=== PATIENT | female | born 1945 | race Caucasian/White ===

== ENCOUNTER 2016-12-15 00:45 | Inpatient (IN) | payer MEDICARE, OTHER ==
[2016-12-15] VITALS (14 sets, daily range): BP systolic 119–150; BP diastolic 63–86; PULSE 72–89; RESP 16–18; TEMP 96.8–98.7; O2SAT 94–99
[~2016-12-15] VITALS: Ht 167.6 cm; Wt 75.1 kg
[~2016-12-15 00:45] MED LIST: ASPI81CH7 CHEW; CITRTAB7 PO; CO Q100C9; CYAN1TAB24; CYMB60CA PO; FISH1000; GLUC1CAP16; HYDR25TA5 PO; LOSA25TA PO; METO25TA6 PO; MULT1TAB46; NAPR250T PO; PRAV20TA2 PO; TURM500C3
[2016-12-15] MEDS ORDERED: SODIUM CHLOR 0.9% 1000 ML INJ 1,000 ML IV SCH (01:18)
[2016-12-15] MEDS ORDERED: ONDANSETRON HCL 4 MG/2 ML VIAL IVP PRN (01:30)
[2016-12-15] MEDS ORDERED: ACETAMINOPHEN 325 MG TAB PO PRN ×2 (01:30→04:45)
[2016-12-15] MEDS ORDERED: SODIUM CHLOR 0.9% 250 ML INJ 250 ML IV ONE (01:30)
[2016-12-15] MEDS ORDERED: NALOXONE HCL 0.4 MG/ML AMP IV PRN (01:30)
[2016-12-15] MEDS ORDERED: SODIUM CHLORIDE 0.9% FLUSH 10 ML FLUSH IV FLUSH PRN (01:30)
[2016-12-15] MEDS: SODIUM CHLORIDE 0.9% FLUSH 10 ML FLUSH IV FLUSH SCH (09:00)
[2016-12-15] MEDS: HYDROCHLOROTHIAZIDE 25 MG TAB PO SCH (09:16)
[2016-12-15] MEDS: LOSARTAN 25 MG TAB PO SCH (09:16)
[2016-12-15] MEDS: DULoxetine HCl DR 60 MG CAP PO SCH (09:16)
[2016-12-15] MEDS: METOPROLOL SUCCINATE 25 MG EXTENDED RELEASE TAB PO SCH (09:16)
[2016-12-15] MEDS: PRAVASTATIN SOD 20 MG TAB PO SCH (09:17)
--- NOTE | 2016-12-15 09:39 | HHI.HP ---
[facility] Primary Care Physician Non-Staff Admission Diagnosis Diagnoses: (1) Severe anemia Diagnosis: Principal (2) Iron deficiency anemia Diagnosis: Principal (3) Painful swallowing Diagnosis: Principal Chief Complaint: Weakness, shortness of breath Travel History International Travel<30 Days: No Contact w/Intl Traveler <30 Da: No Traveled to Known Affected Are: No History of Present Illness Written by Luisito Kelly, acting as scribe for Dr. Lang on 12/15/16 at 09: 27. 71-year-old female with known history of hypertension, fibromyalgia, irritable bowel syndrome, gastroesophageal reflux, parathyroidectomy who presented to the emergency department because of few week history of progressive weakness, shortness of breath, dyspnea on exertion, sore throat. Patient indicates for the last few weeks she has been feeling increased fatigue , weakness, dyspnea. She indicates that she cannot walk up a flight of steps without stopping because of shortness of breath.. 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 Patient indicates that she had a sore throat yesterday with pain on swallowing, her sore throat has since resolved. Because of those above reasons she came to emergency department for evaluation. Patient had workup done in found to have severe anemia, iron studies were performed which does show severe iron deficient anemia. Hemoccult was performed which was negative. Patient denies any abdominal pain, nausea, vomiting, hematochezia or hematemesis, she does have irritable bowel syndrome so she does have intermittent constipation, soft stools. She denies any hematochezia or melena. Because of her severe anemia it was recommended by ER physician that the patient be admitted for further workup and transfusion. Review of Systems Constitutional: COMPLAINS OF: Fatigue, DENIES: Diaphoretic episodes, Fever, Weight gain, Weight loss, Chills, Dizziness, Change in appetite, Night Sweats Eyes: DENIES: Blurred vision, Diplopia, Eye inflammation, Eye pain, Vision loss , Photosensitivity, Double Vision Ears, nose, mouth, throat: COMPLAINS OF: Throat pain, Odynophagia, DENIES: Vertigo, Nasal discharge, Ear Pain, Running Nose, Sinus Pain Respiratory: COMPLAINS OF: Shortness of breath, DENIES: Apneas, Cough, Snoring , Wheezing, Hemoptysis, Sputum production Cardiovascular: COMPLAINS OF: Palpitations, Dyspnea on Exertion, DENIES: Chest pain, Syncope, PND, Lower Extremity Edema, Orthopnea, Claudication Gastrointestinal: COMPLAINS OF: Constipation, Diarrhea, DENIES: Abdominal pain , Black stools, Bloody stools, Nausea, Vomiting, Difficulty Swallowing, Anorexia Neurologic: DENIES: Abnormal gait, Headache, Localized weakness, Paresthesias, Seizures, Speech Problems, Tremor, Poor Balance Past Family Social History Past Medical History Hypertension Hyperlipidemia Fibromyalgia Gastroesophageal reflux Past Surgical History Parathyroidectomy Hysterectomy Right ankle surgery Reported Medications Reported Meds & Active Scripts Active Naproxen 250 Mg Tab 250 Mg PO BID Reported Turmeric (Turmeric (Curcuma Longa)) 500 Mg Cap Citracal + D3 Maximum (Calcium Citrate-Vitamin D) 315-250 Mg-Unit Tab 1 Tab PO ONCE B12 (Cyanocobalamin) 1,000 Mcg Tab Glucosamine Chondroitin (Gedhpzzwnbk-Wtbbtciksuf-Gbv C-) 1 Cap Cap Unknown Dose Fish Oil (Vera-3 Fatty Acids) 1,000 Mg Cap 1,400 Mg Aspirin Children's (Aspirin) 81 Mg Chew 81 Mg CHEW DAILY Multi Vitamin Daily (Multiple Vitamin) 1 Tab Tab Co Q 10 (Coenzyme Q10 (Ubidecarenone)) [address] (Duloxetine HCl) 60 Mg Capdr 60 Mg PO DAILY Pravastatin 20 Mg Tab 20 Mg PO DAILY Hydrochlorothiazide 25 Mg Tab 25 Mg PO DAILY Losartan (Losartan Potassium) 25 Mg Tab 25 Mg PO DAILY Metoprolol Succinate ER 24 HR (Metoprolol Succinate) 25 Mg Tab 25 Mg PO DAILY Allergies: Coded Allergies: No Known Allergies (Unverified , 12/14/16) Family History Reviewed is significant for mother and sister with hiatal hernia. Patient denied any family history of heart disease, lung disease, diabetes, cancer, seizure Social History Patient denies any tobacco, alcohol or illicit drugs Physical Exam Vital Signs Vital Signs Date Time Temp Pulse Resp B/P Pulse Ox O2 Delivery O2 Flow Rate FiO2 12/15/16 09:22 98.6 77 16 150/86 98 12/15/16 08:52 98 21 12/15/16 08:00 96.8 77 16 119/68 95 12/15/16 08:00 96.8 77 18 119/66 97 12/15/16 07:23 97.9 85 18 126/69 95 12/15/16 06:46 97.2 82 16 119/63 95 12/15/16 04:37 98.0 89 16 144/69 96 12/15/16 04:01 79 12/15/16 02:20 96 21 12/15/16 01:09 97.6 86 18 147/85 97 Physical Exam GENERAL: Well-developed, well-nourished, in no acute distress. alert and orientated HEENT: Head is normocephalic without any lesions or masses noted. Facial features are symmetric. Eyes: Pupils equal round reactive to light. Extraocular muscles are intact. Conjunctivae were clear. Oropharyngeal: Pharynx without any erythema edema. Tongue is midline without deviation. Buccal mucosa is moist without any masses or lesions NECK: Supple without any masses. Trachea midline no deviation. No JVD, no bruits are appreciated CARDIAC: Regular rhythm, regular rate. S1/S2 are heard. No murmurs gallops or rubs. LUNGS: Clear to auscultation bilaterally. No wheeze, rhonchi or rales. No use of accessory muscles on inspiration or expiration. ABDOMEN: Soft, nontender. Nondistended. Bowel sounds heard in all 4 quadrants. No organomegaly or masses. Negative rebound, negative guarding EXTREMITIES: No edema, pulses are equal bilaterally. No cyanosis or clubbing NEUROLOGY: Mood and affect appear appropriate. Cranial nerves II through XII grossly intact. Muscle strength 5/5 in upper and lower extremities bilaterally. Deep tendon reflexes are 2+ in upper and lower extremities bilaterally. Laboratory Laboratory Tests Test 12/15/16 12/15/16 01:35 02:25 Blood Type B POSITIVE B POSITIVE Antibody Screen NEGATIVE Crossmatch Leukocyte-Reduced Red Blood Cells Blood Bank Comment Assessment and Plan Assessment and Plan //Severe symptomatic anemia -Patient presented with shortness of breath, dyspnea on exertion, palpitations, fatigue, weakness -Iron studies to indicate iron deficient anemia -Transfusing 2 units packed red blood cells this time, -Continue monitor and transfuse if hemoglobin below 8.0 -Patient will require iron replacement: Depending on further studies will depend on IV versus by mouth //Sore throat, resolved -No indication of infectious process or dysphagia -Continue to monitor //Hypertension -Continue home medications //Hyperlipidemia -Continue home medications //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 I, Dr. Caio Lang personally performed the history, physical exam, and medical decision making; and confirmed the accuracy of the information in the transcribed note. Authenticated by Dr. Caio Lang on 12/15/16 at 18:34. Physician Certification 2 Midnight Certification Type: Admission for Inpatient Services Order for Inpatient Services The services are ordered in accordance with Medicare regulations or non- Medicare payer requirements, as applicable. In the case of services not specified as inpatient-only, they are appropriately provided as inpatient services in accordance with the 2-midnight benchmark. Estimated LOS (days): 2 days is the estimated time the patient will need to remain in the hospital, assuming treatment plan goals are met and no additional complications. Post-Hospital Plan: Not yet determined Luisito Kelly Dec 15, 2016 09:39 Caio Lang MD Dec 15, 2016 18:35
[2016-12-15] MEDS: CALCIUM CARBONATE 1.25 GM (CA 500 MG) TAB PO SCH (10:00)
[2016-12-15 10:40] LABS: POTASSIUM 3.3 MEQ/L (3.5-5.1)
[2016-12-15 10:41] LABS: AUTOMATED NEUTROPHIL # 5.9 TH/MM3 (1.8-7.7); BASOPHIL % 0.5 % (0.0-2.0); EOSINOPHIL # 0.2 TH/MM3 (0-0.4); EOSINOPHIL % 2.2 % (0.0-4.0); HEMATOCRIT 23.5 % (35.0-46.0); HEMO FLAGS AUTO DIFF; LYMPH % 19.3 % (9.0-44.0); LYMPHOCYTE # 1.6 TH/MM3 (1.0-4.8); MEAN CELL VOLUME 65.9 FL (80.0-100.0); MEAN CORPUSCULAR HEMOGLOBIN 20.5 PG (27.0-34.0); MEAN CORPUSCULAR HGB CONC 31.1 % (32.0-36.0); MONO % 6.2 % (0.0-8.0); NEUT % 71.8 % (16.0-70.0); PLATELET COUNT 479 TH/MM3 (150-450); RED BLOOD COUNT 3.57 MIL/MM3 (4.00-5.30); RED CELL DISTRIBUTION WIDTH 24.3 % (11.6-17.2); WHITE BLOOD COUNT 8.2 TH/MM3 (4.0-11.0)
[2016-12-15 10:42] LABS: BICARBONATE 28.1 MEQ/L (21.0-32.0)
[2016-12-15 10:58] LABS: ACANTHOCYTES OCC (NORMAL); KERATOCYTES OCC (NORMAL); OVALOCYTES 1+ (NORMAL); ROULEAUX PRESENT (NORMAL)
[2016-12-15 10:59] LABS: PLATELET ESTIMATE SMEAR HIGH (NORMAL); PLATELET MORPHOLOGY NORMAL (NORMAL); SCAN/DIFF AUTO DIFF CONFIRMED
[2016-12-15 11:40] LABS: LDH SERUM 198 U/L (84-246)
[2016-12-15 12:24] LABS: RETIC % 1.8 % (0.4-3.0)
[2016-12-15 12:28] LABS: REVIEW FLAG FINAL
[2016-12-15] MEDS ORDERED: PEG (High)/E-LYTE SOLN 4000 ML BTL PO ONE (16:00)
--- NOTE | 2016-12-15 17:16 | MB ---
cc: MONI EWING M.D. DATE OF CONSULTATION 12/15/2016 DATE OF [address] Waddell. REASON FOR REFERRAL Dysphagia and significant anemia. HISTORY OF THE PRESENT ILLNESS Thank you for the consultation. A pleasant 71-year-old lady who presented to the [place] [facility] complaining of generalized weakness, fatigue. The patient stated that this has been getting worse steadily and that is why she went to the emergency room over the last month and she was found to be severely anemic. The patient was not able to even go up stairs for one flight without having dyspnea on exertion and general weakness. The patient denied any sign of active bleeding. No dark blood. No hematemesis. No rectal bleeding. She had a colonoscopy and endoscopy 8 years ago. The patient also complained of occasional dysphagia, mostly to solids. She had occasional irritable bowel syndrome with loose stool but no bleeding or history of colitis. PAST MEDICAL HISTORY Significant for: 1. Hyperlipidemia. 2. Fibromyalgia. 3. Gastroesophageal reflux symptoms. 4. Hypertension. PAST SURGICAL HISTORY 1. Hysterectomy 2. Ankle surgery. 3. Parathyroidectomy which was complicated with bleeding. REVIEW OF SYSTEMS All 12-point negative except HPI. MEDICATIONS Reviewed in the chart. FAMILY HISTORY Negative for heart disease or colon cancer. Patient had a family member with lung cancer secondary to smoking. SOCIAL HISTORY No tobacco, drug or alcohol. PHYSICAL EXAMINATION GENERAL: Alert, oriented, in no acute distress. VITAL SIGNS: Stable. HEENT: Pupils are round and reactive to light. NECK: Supple. CHEST: Clear to auscultation and percussion. CARDIOVASCULAR: Regular rate and rhythm. No murmur or gallop. ABDOMEN: Soft, nondistended. Positive bowel sounds. No hepatosplenomegaly. EXTREMITIES: No edema, clubbing or cyanosis. NEUROLOGIC: Intact. PSYCHOLOGIC: Psychologically appropriate. LABORATORY DATA White count 8.2, hemoglobin 7.3, platelets 479. Sodium was 145, potassium 3.3. Vitamin B12 was 1116. Folate was greater than 20. ASSESSMENT/PLAN Garcia, 71-year-old lady with shortness of breath, dyspnea came complaining that she was found to be severely anemic. No sign of active bleed. She also has dysphagia. I recommend an upper endoscopy with possible dilation and a colonoscopy. We discussed the procedures and complication. She most likely want to proceed with it but she wants to discuss it with her before she agreed to it. The patient also may need hematology consult if there is no sign of active bleeding since she does not have symptom of GI bleed, so I recommend hematology consult. She is already receiving packed red blood cells and we will follow up on the hemoglobin. I explained to the patient the procedure and complication and we will plan on doing it tomorrow if she is agreeable for that. MD YASIR Ryan/KK /2:42 PM /5:07 PM
[2016-12-15 18:21] LABS: HEMATOCRIT 26.5 % (35.0-46.0)
[2016-12-15 18:23] LABS: REVIEW FLAG FINAL
[2016-12-16] VITALS (10 sets, daily range): BP systolic 116–147; BP diastolic 70–84; PULSE 68–83; RESP 16–19; TEMP 97.1–98.5; O2SAT 94–97
[2016-12-16] MEDS: SODIUM CHLORIDE 0.9% FLUSH 10 ML FLUSH IV FLUSH SCH ×3 (00:46→20:46)
[2016-12-16 06:55] LABS: AUTOMATED NEUTROPHIL # 8.8 TH/MM3 (1.8-7.7); BASOPHIL % 0.3 % (0.0-2.0); EOSINOPHIL # 0.2 TH/MM3 (0-0.4); EOSINOPHIL % 1.9 % (0.0-4.0); HEMATOCRIT 25.7 % (35.0-46.0); LYMPH % 16.2 % (9.0-44.0); LYMPHOCYTE # 1.9 TH/MM3 (1.0-4.8); MEAN CELL VOLUME 68.1 FL (80.0-100.0); MEAN CORPUSCULAR HEMOGLOBIN 21.5 PG (27.0-34.0); MEAN CORPUSCULAR HGB CONC 31.6 % (32.0-36.0); MONO % 5.6 % (0.0-8.0); PLATELET COUNT 413 TH/MM3 (150-450); RED BLOOD COUNT 3.78 MIL/MM3 (4.00-5.30); RED CELL DISTRIBUTION WIDTH 24.3 % (11.6-17.2); WHITE BLOOD COUNT 11.5 TH/MM3 (4.0-11.0)
[2016-12-16 06:58] LABS: HEMO FLAGS AUTO DIFF
[2016-12-16 06:59] LABS: POTASSIUM 3.5 MEQ/L (3.5-5.1)
[2016-12-16 07:04] LABS: BICARBONATE 29.7 MEQ/L (21.0-32.0)
[2016-12-16 07:40] LABS: SCAN/DIFF AUTO DIFF CONFIRMED
[2016-12-16] MEDS: PRAVASTATIN SOD 20 MG TAB PO SCH (09:00)
[2016-12-16] MEDS: DULoxetine HCl DR 60 MG CAP PO SCH (09:00)
[2016-12-16] MEDS: CALCIUM CARBONATE 1.25 GM (CA 500 MG) TAB PO SCH (09:00)
--- NOTE | 2016-12-16 09:19 | GIPROC ---
[facility] [address] [place] [address], [id number] COLONOSCOPY PROCEDURE REPORT EXAM DATE: 12/16/2016 PATIENT NAME: Luba Linn MR #: [id number] BIRTHDATE: 1945 ENDOSCOPIST: Kristopher Bernal MD ORDER #: [id number] DIRECTOR TRANSLATIONAL: Haley Mcfadden and Alonso Chand STATUS: inpatient INDICATIONS: The patient is a 71 yr old female here for a colonoscopy due to anemia, non-specific PROCEDURE PERFORMED: Colonoscopy with ablation MEDICATIONS: None and Per Anesthesia. PREP QUALITY: fair ESTIMATED BLOOD LOSS: None CONSENT: The patient understands the risks and benefits of the procedure and understands that these risks include, but are not limited to: sedation, allergic reaction, infection, perforation and/or bleeding. Alternative means of evaluation and treatment include, among others: physical exam, x-rays, and/or surgical intervention. The patient elects to proceed with this endoscopic procedure. medical equipment was checked for proper function. Hand hygiene and appropriate measures for infection prevention was taken. After the risks, benefits and alternatives of the procedure were thoroughly explained, Informed consent was verified, confirmed and timeout was successfully executed by the treatment team. A digital exam revealed no abnormalities of the rectum The Pentax EC-3490Li endoscope was introduced through the anus and advanced to the cecum, which was identified by both the appendix and ileocecal valve. The instrument was then slowly withdrawn as the colon was fully examined. COLON FINDINGS: Severe diverticulosis was noted throughout the entire examined colon. 2 polyps in the sigmoid ablated with heat. Very tortous colon. Retroflexed views revealed no abnormalities The scope was then completely withdrawn from the patient and the procedure terminated. ADVERSE EVENTS: There were no complications. IMPRESSIONS: 1. Severe diverticulosis was noted throughout the entire examined colon 2. 2 polyps in the sigmoid ablated with heat 3. Very tortous colon 4. Retroflexed views revealed no abnormalities 5. Revealed no abnormalities of the rectum RECOMMENDATIONS: 1. Yearly hemoccult 2. High fiber diet RECALL: Return 3 years Colonoscopy Kristopher Bernal MD eSigned: Kristopher Bernal MD 2016-12-16 09:19:[id number] cc:
--- NOTE | 2016-12-16 09:22 | GIPROC ---
[facility] [address] [place] [address], [id number] EGD PROCEDURE REPORT EXAM DATE: 12/16/2016 PATIENT NAME: Luba Linn MR #: [id number] BIRTHDATE: 1945 ATTENDING: Kristopher Bernal MD ORDER #: [id number] CURB ATTENDANT: Haley Mcfadden and Alonso Chand STATUS: inpatient INDICATIONS: The patient is a 71 yr old female here for an EGD due to anemia and dysphagia PROCEDURE PERFORMED: EGD w/ biopsy EGD w/ dilation of esophagus via guidewire MEDICATIONS: None and Per Anesthesia. TOPICAL ANESTHETIC: none CONSENT: The patient understands the risks and benefits of the procedure and understands that these risks include, but are not limited to: sedation, allergic reaction, infection, perforation and/or bleeding. Alternative means of evaluation and treatment include, among others: physical exam, x-rays, and/or surgical intervention. The patient elects to proceed with this endoscopic procedure. medical equipment was checked for proper function. Hand hygiene and appropriate measures for infection prevention was taken. After the risks, benefits and alternatives of the procedure were thoroughly explained, Informed consent was verified, confirmed and timeout was successfully executed by the treatment team. The patient was anesthetized with topical anesthesia and the EC-3490Li (Pedi C) endoscope was introduced through the mouth and advanced to the second portion of the duodenum. Retroflexed views revealed no abnormalities The gastroscope was then slowly withdrawn and removed. Esophageal stricture s/p dilation savary size 17 mm. Large H hernia. Gastritis Bx in antrum. The endoscopy was otherwise normal. ADVERSE EVENTS: There were no complications. IMPRESSIONS: 1. Esophageal stricture s/p dilation savary size 17 mm 2. Large H hernia 3. Gastritis Bx in antrum 4. Normal endoscopy otherwise 5. Retroflexed views revealed no abnormalities RECOMMENDATIONS: 1. Await biopsy results. Biopsy results will not be ready for 7-10 days. If you don't hear from us in two weeks, call our office for biopsy results. 2. Anti-reflux regimen 3. Continue PPI 4. Avoid NSAIDS PATIENT CONDITION: stable DISPOSITION: Inpatient REPEAT EXAM: Return as needed for EGD Kristopher Bernal MD eSigned: Kristopher Bernal MD 2016-12-16 09:22:36.073 cc:
[2016-12-16] MEDS ORDERED: PROPOFOL 200 MG/20 ML AMP IV ONE (09:34)
[2016-12-16] MEDS: LOSARTAN 25 MG TAB PO SCH (10:52)
[2016-12-16] MEDS: HYDROCHLOROTHIAZIDE 25 MG TAB PO SCH (10:52)
[2016-12-16] MEDS: METOPROLOL SUCCINATE 25 MG EXTENDED RELEASE TAB PO SCH (10:53)
--- NOTE | 2016-12-16 11:17 | EKG ---
Date Performed: 12/16/2016 Time Performed: 06:29:56 PTAGE: 71 years EKG: Sinus rhythm Normal ECG NO PREVIOUS TRACING DOCTOR: Connor Ge Interpretating Date/Time 12/16/2016 11:14:49
[2016-12-16] MEDS ORDERED: OMEP20TA PO (12:28)
[2016-12-16] MEDS: PANTOPRAZOLE SOD 40 MG DELAYED RELEASE TAB PO SCH ×2 (12:51→20:45)
--- NOTE | 2016-12-16 14:20 | HHI.PR ---
Subjective Remarks Follow up anemia. Patient states that she feels much better. Denies abdominal pain, lightheadedness. Objective Vitals Vital Signs Date Time Temp Pulse Resp B/P Pulse Ox O2 Delivery O2 Flow Rate FiO2 12/16/16 12:00 98.5 77 19 147/80 95 12/16/16 09:53 98.0 79 16 117/73 100 12/16/16 09:25 97.8 78 16 110/47 94 12/16/16 07:20 98.1 78 16 131/79 96 12/16/16 04:17 97.1 76 16 128/71 97 12/16/16 00:58 97.9 83 18 135/84 96 12/15/16 20:00 97.3 78 16 150/83 95 12/15/16 19:35 95 21 12/15/16 16:00 97.7 81 18 142/72 95 I/O 12/15/16 12/15/16 12/15/16 12/16/16 12/16/16 12/16/16 06:59 14:59 22:59 06:59 14:59 22:59 Intake Total 200 ml 550 ml 100 ml Balance 200 ml 550 ml 100 ml Intake Oral 550 ml IV Total 200 ml Other 100 ml # Voids 3 2 # Bowel Movements 3 Result Diagram: 12/16/1662212/16/16 06 Objective Remarks General: No acute distress. Heart: Regular rate and rhythm. No murmur. Lungs: Clear to auscultation bilaterally. No wheezes, rales, or rhonchi. Breathing is nonlabored. Abdomen: Soft, nontender, nondistended. Extremities: No lower extremity edema. Psych: Alert and oriented. Procedures 12/16/16 EGD with biopsy Urinary Catheter: No Vascular Central Line Catheter: No A/P Problem List: (1) Severe anemia ICD Code: D64.9 Status: Acute (2) Iron deficiency anemia ICD Code: D50.9 Status: Acute (3) Painful swallowing ICD Code: R13.10 Status: Acute Assessment and Plan 1. Symptomatic anemia: Hemoglobin remained stable overnight. Still low, but improved following transfusion. Monitor H&H. Status post EGD which showed gastritis with no apparent active bleeding. Discussed with Dr. Bernal, who recommended hematology consult. Start iron supplementation. Continue PPI. 2. Sore throat: Resolved. 3. Hypertension: Continue home medications. 4. Hyperlipidemia: Continue home medications. 5. 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 6. DVT prophylaxis: SCDs. Avoid chemical prophylaxis secondary to anemia. Discharge Planning Plan for discharge home when cleared by hematology. Luisito Don MD Dec 16, 2016 14:20
[2016-12-16 15:46] LABS: HEMATOCRIT 26.3 % (35.0-46.0)
[2016-12-16 15:48] LABS: REVIEW FLAG FINAL
--- NOTE | 2016-12-16 18:37 | HHI.GIFU ---
Subjective Remarks feels well, no sign of bleed, less weakness, no pain Objective Vitals I&O Vital Signs Date Time Temp Pulse Resp B/P Pulse Ox O2 Delivery O2 Flow Rate FiO2 12/16/16 16:00 97.8 68 18 138/77 95 12/16/16 12:00 98.5 77 19 147/80 95 12/16/16 10:52 77 12/16/16 09:53 98.0 79 16 117/73 100 12/16/16 09:25 97.8 78 16 110/47 94 12/16/16 08:00 97 21 12/16/16 07:20 98.1 78 16 131/79 96 12/16/16 04:17 97.1 76 16 128/71 97 12/16/16 00:58 97.9 83 18 135/84 96 12/15/16 20:00 97.3 78 16 150/83 95 12/15/16 19:35 95 21 I/O 12/15/16 12/15/16 12/15/16 12/16/16 12/16/16 12/16/16 07:00 15:00 23:00 07:00 15:00 23:00 Intake Total 200 ml 550 ml 102 ml Balance 200 ml 550 ml 102 ml Intake Oral 550 ml IV Total 200 ml 2 ml Other 100 ml # Voids 3 2 # Bowel Movements 3 Laboratory Laboratory Tests Test 12/16/16 12/16/16 12/16/16 12/16/16 00:40 06:23 06:25 15:22 Hemoglobin 8.0 8.1 8.4 White Blood Count 11.5 Red Blood Count 3.78 Hematocrit 25.7 26.3 Mean Corpuscular Volume 68.1 Mean Corpuscular Hemoglobin 21.5 Mean Corpuscular Hemoglobin 31.6 Concent Red Cell Distribution Width 24.3 Platelet Count 413 Mean Platelet Volume 6.9 Neutrophils (%) (Auto) 76.0 Lymphocytes (%) (Auto) 16.2 Monocytes (%) (Auto) 5.6 Eosinophils (%) (Auto) 1.9 Basophils (%) (Auto) 0.3 Neutrophils # (Auto) 8.8 Lymphocytes # (Auto) 1.9 Monocytes # (Auto) 0.6 Eosinophils # (Auto) 0.2 Basophils # (Auto) 0.0 CBC Comment AUTO DIFF Differential Comment AUTO DIFF CONFIRMED Sodium Level 141 Potassium Level 3.5 Chloride Level 104 Carbon Dioxide Level 29.7 Anion Gap 7 Blood Urea Nitrogen 12 Creatinine 0.61 Estimat Glomerular Filtration 97 Rate Random Glucose 102 Calcium Level 8.4 Physical Exam HEENT: Pupils round and reactive to light; normocephalic; atraumatic; no jaundice. Throat is clear. NECK: Neck is supple, no JVD, no lymphadenopathy. CHEST: Chest is clear to auscultation and percussion. CARDIAC: Regular rate and rhythm with no murmur gallop or rubs. ABDOMEN: Soft, nondistended, nontender; no hepatosplenomegaly; bowel sounds are present in all four quadrants. EXTREMITIES: No clubbing, cyanosis, or edema. SKIN: Normal; no rash; no jaundice. RECORDS MANAGEMENT SPECIALIST: No focal deficits; alert and oriented times three. Assessment and Plan Plan sever anemia, weakness, ? etiology, EGD today showed esophageal stricture S/P dilation, mid size hiatal hernia with some gastritis in it, colon showed 2 small polyps ablated and sever diverticulosis, no reason for the sever anemia unless it is from the gastritis recommend PRBC as needed hematology consult continue PPI colonoscopy in 3 years Kristopher Bernal MD Dec 16, 2016 18:37
[2016-12-16] MEDS: SODIUM CHLORIDE 0.9% IV SCH (18:45)
[2016-12-16] MEDS: IRON SUCROSE IV SCH (18:45)
[2016-12-16] MEDS: FERROUS SULFATE 325 MG (65 MG ELEMENTAL IRON) TAB PO SCH (20:45)
[2016-12-16] MEDS ORDERED: PRAVASTATIN SOD 20 MG TAB PO SCH (21:00)
[2016-12-17] VITALS (7 sets, daily range): BP systolic 122–134; BP diastolic 60–71; PULSE 62–77; RESP 16–20; TEMP 97.1–98.7; O2SAT 92–97
[2016-12-17 06:18] LABS: AUTOMATED NEUTROPHIL # 8.5 TH/MM3 (1.8-7.7); BASOPHIL % 0.3 % (0.0-2.0); EOSINOPHIL # 0.2 TH/MM3 (0-0.4); HEMATOCRIT 24.9 % (35.0-46.0); LYMPH % 15.1 % (9.0-44.0); LYMPHOCYTE # 1.7 TH/MM3 (1.0-4.8); MEAN CELL VOLUME 68.1 FL (80.0-100.0); MEAN CORPUSCULAR HEMOGLOBIN 21.1 PG (27.0-34.0); MEAN CORPUSCULAR HGB CONC 31.1 % (32.0-36.0); MONO % 5.9 % (0.0-8.0); NEUT % 76.7 % (16.0-70.0); PLATELET COUNT 383 TH/MM3 (150-450); RED BLOOD COUNT 3.66 MIL/MM3 (4.00-5.30); RED CELL DISTRIBUTION WIDTH 25.2 % (11.6-17.2); WHITE BLOOD COUNT 11.1 TH/MM3 (4.0-11.0)
[2016-12-17 06:31] LABS: HEMO FLAGS AUTO DIFF
--- NOTE | 2016-12-17 06:46 | MB ---
cc: BRENT LEE M.D., ANDREW C. DATE OF CONSULTATION 03/18/2017 DATE OF 1945 CONSULT REQUESTED BY [facility] Hospitalist Service PRIMARY CARE PHYSICIAN Dr. Ziyad Zapien REASON FOR CONSULTATION Severe microcytic anemia secondary to iron deficiency. CHIEF COMPLAINT The patient reports a four-week history of progressive weakness in her legs, difficulty breathing with exertion. HISTORY OF PRESENT ILLNESS Ms. Linn is a very pleasant 71-year-old female who presented to [facility] on 12/15/2016 complaining of the above symptoms of progressive difficulty breathing with minimal exertion and generalized fatigue. She also reports feeling lightheaded. The patient, on blood work was noted to have a hemoglobin of 5.8 gm/dl associate with hematocrit of 20%, her platelet count was elevated 525 as well at that time. She was transferred to [facility] for further workup and evaluation. The patient reports having been anemic in her younger years when she was still having menstrual cycles, but she underwent a hysterectomy in 1987 for endometriosis and heavy menstrual bleeding. She tells me she had not been anemic ever since. She does however note blood work done in August 2016 indicated a hemoglobin of 10 gm/dl, but this did not strike her as abnormal because it was not mentioned during her office visit with her primary care physician. The patient reports no history of bleeding, she specifically denies hematochezia or melena, she denies vaginal bleeding or hematuria. She tells me that she does take aspirin 81 mg daily and she takes about two Advil tablets sometime three daily, but never more than three tablets (600 mg per day). She denies having had any gastritis or upper abdominal pain. During this hospitalization, she did undergo a colonoscopy which was performed on 12/16/2016, she was noted to have severe diverticulosis throughout the entire colon, as well as two polyps in the sigmoid area which were ablated. Additionally, EGD was done on 12/16/2016 as well. This revealed a large hiatal hernia, esophageal stricture which was dilated, gastritis was also noted with biopsies of the antrum (biopsies results are pending). The hematology service has been asked to see her for further management of severe microcytic anemia as well as outpatient followup. PAST MEDICAL HISTORY 1. Arthritis 2. Hypertension 3. Endometriosis 4. Reported history of fibromyalgia. PAST SURGICAL HISTORY 1. Hysterectomy 1987. 2. In 2015, she underwent parathyroidectomy. FAMILY HISTORY Father of a massive OR at 61, mother had iron deficiency anemia, she is now , sister also had iron deficiency anemia. GYNECOLOGIC HISTORY 0, para 0. 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 She tells me she has never smoked, she has an occasional alcohol drinker. She has five adopted children all of whom are grown. ALLERGIES She has no known drug allergies. OUTPATIENT MEDICATIONS 1. Aspirin 81 mg once daily 2. Ibuprofen 400 mg daily CURRENT INPATIENT MEDICATIONS 1. Tylenol 650 mg p.o. q.4 h as needed for fever 2. Calcium carbonate 500 mg p.o. daily 3. Cymbalta of 60 mg daily 4. HCTZ 25 mg p.o. daily 5. Losartan 25 mg p.o. daily 6. Metoprolol 25 mg daily 7. Zofran 4 mg IV q.6 h next 8. Pantoprazole 40 mg p.o. b.i.d. 9. Pravastatin 20 mg p.o. q.h.s. REVIEW OF SYSTEMS A 13-point review of systems were obtained. The following are the pertinent positives and negatives unless mentioned otherwise in the HPI. CONSTITUTIONAL: Fatigue, weakness, breathlessness, denies fevers, chills, night sweats, loss of appetite, or weight loss. HEENT: Reports lightheadedness, denies soreness in the throat, difficulty swallowing. RESPIRATORY: Reports difficulty breathing, exertional dyspnea, denies cough, hemoptysis or angina-like chest pain. CARDIOVASCULAR: Reports palpitations, denies chest pain or pressure, denies lower extremity edema. GI: Denies nausea, vomiting, diarrhea hematochezia, melena, abdominal pain or distension. : No complaints. MUSCULOSKELETAL: No complaints other than weakness of her legs. TICKET MANAGER: No focal sensory motor deficits. PHYSICAL EXAMINATION VITAL SIGNS: Temperature 97.8 degrees Fahrenheit, heart rate 68 beats a minute, respiratory rate 18, blood pressure 138/77, O2 sats 95% on room air. GENERAL PHYSICAL APPEARANCE: Ms. Linn is an elderly female, she has a very pleasant disposition. HEENT: Head atraumatic, normocephalic, conjunctive are pale sclerae anicteric, EOMI, PERRLA, oral exam no pharyngeal erythema. NECK: No palpable cervical or supraclavicular adenopathy. She does have a suprasternal surgical scar noted. RESPIRATORY: Good air movement bilaterally without any added breath sounds on posterior exam. CARDIOVASCULAR: Regular rate and rhythm, S1-S2. No obvious murmurs, gallops. ABDOMEN: Protuberant belly, soft, nontender, nondistended, no palpable organ enlargement, specifically no hepatosplenomegaly. EXTREMITIES: Lower extremities have no pretibial edema or calf tenderness. TICKET MANAGER: No focal sensory motor deficits. LABORATORY FINDINGS Blood work dated 12/16/2016: Sodium 141, potassium 3.5, chloride 104, bicarb 29.7, BUN 12, creatinine 0.61, EGFR 97, calcium 8.4. Serum iron studies dated 12/14/2016: Iron level 10, TIBC 571, percent iron saturation 1.8%, ferritin level 2. Total bilirubin 0.2, AST 21, ALT 30, alkaline phosphatase 71, albumin 3.5. Folic acid level 20, vitamin B12 level elevated at 116. CBC dated 12/14/2016: WBC count 11.3, hemoglobin 5.8 gm/dl, hematocrit 20%, MCV 62.7, RDW of 17.6. MCH low at 18.2, platelet count elevated at 525. Spherocytes, ovalocytes and karyocytes were all noted. Haptoglobin level noted to be normal at 179, ASSESSMENT Ms. Linn is a very pleasant 71-year-old female who came into [facility] with a three to four week history of progressive difficulty breathing with exertion, lightheadedness and weakness in her legs. She was noted to have a hemoglobin of 5.8 gm/dl upon admission, a hemolysis workup was negative, serum iron studies were consistent with iron deficiency anemia as were the red blood cell indices. Stool for occult blood was negative. She denies any history of apparent or obvious blood loss, specifically, hematochezia or melena, hematuria or hemoptysis. She did undergo a GI workup including EGD and colonoscopy and was noted to have gastritis; biopsies were taken, a distal esophageal stricture was also noted and this was dilated. Colonoscopy revealed diverticulitis throughout the colon and two polyps in the sigmoid colon which were ablated. The hematology service has been asked to see her for further workup and management. RECOMMENDATIONS 1. Severe iron deficiency anemia: I would recommend IV iron replacement therapy with iron sucrose at a dose of 500 mg IV daily x2. I would also recommend folic acid for her even though her folic acid levels are normal. When ready for d/c please send her home with oral ferrous sulfate 325 mg po BID. 2. Additional GI workup if needed per the gastroenterology service. 3. Follow up with hematology in the upcoming weeks for surveillance and monitoring for improvement. Additionally she may require an outpatient infusions of iron replacement therapy as well. MD SHIVAM Moody/CAMILLA /6:38 PM /6:34 AM FLOR
[2016-12-17 07:16] LABS: KERATOCYTES OCC (NORMAL); OVALOCYTES 1+ (NORMAL); ROULEAUX PRESENT (NORMAL); SCAN/DIFF AUTO DIFF CONFIRMED
[2016-12-17] MEDS: DULoxetine HCl DR 60 MG CAP PO SCH (09:00)
[2016-12-17] MEDS ORDERED: FOLIC ACID 1 MG TAB PO SCH (09:00)
[2016-12-17] MEDS: CALCIUM CARBONATE 1.25 GM (CA 500 MG) TAB PO SCH (09:00)
[2016-12-17] MEDS: LOSARTAN 25 MG TAB PO SCH (09:29)
[2016-12-17] MEDS: HYDROCHLOROTHIAZIDE 25 MG TAB PO SCH (09:30)
[2016-12-17] MEDS: METOPROLOL SUCCINATE 25 MG EXTENDED RELEASE TAB PO SCH (09:30)
[2016-12-17] MEDS: FERROUS SULFATE 325 MG (65 MG ELEMENTAL IRON) TAB PO SCH (09:30)
[2016-12-17] MEDS: PANTOPRAZOLE SOD 40 MG DELAYED RELEASE TAB PO SCH (09:30)
[2016-12-17] MEDS: SODIUM CHLORIDE 0.9% FLUSH 10 ML FLUSH IV FLUSH SCH (09:31)
[2016-12-17] MEDS: IRON SUCROSE IV SCH (09:31)
[2016-12-17] MEDS: SODIUM CHLORIDE 0.9% IV SCH (09:31)
--- NOTE | 2016-12-17 11:34 | HHI.PR ---
Subjective Remarks Follow up iron deficiency anemia. Patient states that she feels better today and wants to go home. No pain currently. Has had pain with swallowing, but "not a sore throat". This started prior to the hospitalization. Objective Vitals Vital Signs Date Time Temp Pulse Resp B/P Pulse Ox O2 Delivery O2 Flow Rate FiO2 12/17/16 07:40 97.5 67 20 127/60 92 12/17/16 04:00 97.1 69 16 123/66 95 12/17/16 00:00 98.7 77 16 122/71 93 12/16/16 20:25 72 12/16/16 20:00 97.6 77 18 116/70 94 12/16/16 19:55 94 21 12/16/16 16:00 97.8 68 18 138/77 95 12/16/16 12:00 98.5 77 19 147/80 95 I/O 12/16/16 12/16/16 12/16/16 12/17/16 12/17/16 12/17/16 07:00 15:00 23:00 07:00 15:00 23:00 Intake Total 102 ml 0 ml 600 ml Balance 102 ml 0 ml 600 ml Intake Oral 600 ml IV Total 2 ml 0 ml Other 100 ml # Voids 2 # Bowel Movements 0 Result Diagram: 12/17/16 0545 12/16/16 0625 Objective Remarks General: No acute distress. Heart: Regular rate and rhythm. No murmur. Lungs: Clear to auscultation bilaterally. No wheezes, rales, or rhonchi. Breathing is nonlabored. Abdomen: Soft, nontender, nondistended. Extremities: No lower extremity edema. Psych: Alert and oriented. Procedures 12/16/16 EGD with biopsy Urinary Catheter: No Vascular Central Line Catheter: No A/P Problem List: (1) Severe anemia ICD Code: D64.9 Status: Acute (2) Iron deficiency anemia ICD Code: D50.9 Status: Acute (3) Painful swallowing ICD Code: R13.10 Status: Acute Assessment and Plan 1. Symptomatic anemia: Hemoglobin slightly decreased overnight. Received transfusion of 2 units PRBCs during this hospitalization. Status post EGD which showed gastritis with no apparent active bleeding. Appreciate hematology recommendations. Receiving second dose of IV iron now. 2. Sore throat: Resolved. 3. Hypertension: Continue home medications. 4. Hyperlipidemia: Continue home medications. 5. 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 6. DVT prophylaxis: SCDs. Avoid chemical prophylaxis secondary to anemia. Discharge Planning Possible discharge home later today pending repeat H/H and clearance by hematology. Luisito Don MD Dec 17, 2016 11:34
[2016-12-17 15:21] LABS: HEMATOCRIT 29.8 % (35.0-46.0)
[2016-12-17 15:25] LABS: REVIEW FLAG FINAL
[2016-12-17] MEDS ORDERED: FERR325T20 PO (15:50)
[2016-12-17] MEDS ORDERED: PANT40TA3 PO (15:50)
[2016-12-17] MEDS ORDERED: FOLI1TAB6 PO (15:50)
--- NOTE | 2016-12-17 15:51 | HHI.DCPOC ---
Discharge Care Plan Diagnosis: (1) Severe anemia (2) Iron deficiency anemia (3) Painful swallowing (4) Hypertension Goals to Promote Your Health * To prevent worsening of your condition and complications * To maintain your health at the optimal level Directions to Meet Your Goals Take your medications as prescribed Follow your dietary instruction Follow activity as directed Keep your appointments as scheduled Take your immunizations and boosters as scheduled If your symptoms worsen call your PCP, if no PCP go to Urgent Care Center or Emergency Room Smoking is Dangerous to Your Health. Avoid second hand smoke Call the 24-hour hour crisis hotline for domestic abuse at Luisito Don MD Dec 17, 2016 15:51
--- NOTE | 2016-12-17 15:55 | HHI.DS ---
Discharge Summary Admission Date Dec 15, 2016 at 00:49 Discharge Date: Dec 17, 2016 Admitting Diagnosis Symptomatic anemia (1) Severe anemia ICD Code: D64.9 Diagnosis: Principal (2) Iron deficiency anemia ICD Code: D50.9 Diagnosis: Principal (3) Painful swallowing ICD Code: R13.10 Diagnosis: Principal Procedures 12/16/16 EGD with biopsy Brief History - From Admission Written by Luisito Kelly, acting as scribe for Dr. Lang on 12/15/16 at 09: 27. 71-year-old female with known history of hypertension, fibromyalgia, irritable bowel syndrome, gastroesophageal reflux, parathyroidectomy who presented to the emergency department because of few week history of progressive weakness, shortness of breath, dyspnea on exertion, sore throat. Patient indicates for the last few weeks she has been feeling increased fatigue , weakness, dyspnea. She indicates that she cannot walk up a flight of steps without stopping because of shortness of breath.. She indicates that she had blood work done by her medical lab director a month ago and was never notified that there was any abnormality. Patient indicates that she had a sore throat yesterday with pain on swallowing, her sore throat has since resolved. Because of those above reasons she came to emergency department for evaluation. Patient had workup done in found to have severe anemia, iron studies were performed which does show severe iron deficient anemia. Hemoccult was performed which was negative. Patient denies any abdominal pain, nausea, vomiting, hematochezia or hematemesis, she does have irritable bowel syndrome so she does have intermittent constipation, soft stools. She denies any hematochezia or melena. Because of her severe anemia it was recommended by ER physician that the patient be admitted for further workup and transfusion. CBC/BMP: 12/17/16 1513 12/16/16 0625 Significant Findings Laboratory Tests Test 12/15/16 12/15/16 12/16/16 12/16/16 10:30 18:15 00:40 06:23 Red Blood Count 3.57 MIL/MM3 3.78 MIL/MM3 (4.00-5.30) (4.00-5.30) Hemoglobin 7.3 GM/DL 8.4 GM/DL 8.0 GM/DL 8.1 GM/DL (11.6-15.3) (11.6-15.3) (11.6-15.3) (11.6-15.3) Hematocrit 23.5 % 26.5 % 25.7 % (35.0-46.0) (35.0-46.0) (35.0-46.0) Mean Corpuscular Volume 65.9 FL 68.1 FL (80.0-100.0) (80.0-100.0) Mean Corpuscular Hemoglobin 20.5 PG 21.5 PG (27.0-34.0) (27.0-34.0) Mean Corpuscular Hemoglobin 31.1 % 31.6 % Concent (32.0-36.0) (32.0-36.0) Red Cell Distribution Width 24.3 % 24.3 % (11.6-17.2) (11.6-17.2) Platelet Count 479 TH/MM3 (150-450) Mean Platelet Volume 6.7 FL 6.9 FL (7.0-11.0) (7.0-11.0) Neutrophils (%) (Auto) 71.8 % 76.0 % (16.0-70.0) (16.0-70.0) Platelet Estimate HIGH (NORMAL) Ovalocytes 1+ (NORMAL) Acanthocytes OCC (NORMAL) Rouleau PRESENT (NORMAL) Keratocytes OCC (NORMAL) Potassium Level 3.3 MEQ/L (3.5-5.1) Chloride Level 108 MEQ/L (98-107) Estimat Glomerular Filtration 70 ML/MIN (>89) Rate Random Glucose 108 MG/DL (74-106) Calcium Level 8.3 MG/DL (8.5-10.1) Vitamin B12 Level 1116 PG/ML (193-986) Folate GREATER THAN 20.0 NG/ML (3.1-17.5) White Blood Count 11.5 TH/MM3 (4.0-11.0) Neutrophils # (Auto) 8.8 TH/MM3 (1.8-7.7) Test 12/16/16 12/16/16 12/17/16 12/17/16 06:25 15:22 05:45 15:13 Calcium Level 8.4 MG/DL (8.5-10.1) Hemoglobin 8.4 GM/DL 7.7 GM/DL 9.1 GM/DL (11.6-15.3) (11.6-15.3) (11.6-15.3) Hematocrit 26.3 % 24.9 % 29.8 % (35.0-46.0) (35.0-46.0) (35.0-46.0) White Blood Count 11.1 TH/MM3 (4.0-11.0) Red Blood Count 3.66 MIL/MM3 (4.00-5.30) Mean Corpuscular Volume 68.1 FL (80.0-100.0) Mean Corpuscular Hemoglobin 21.1 PG (27.0-34.0) Mean Corpuscular Hemoglobin 31.1 % Concent (32.0-36.0) Red Cell Distribution Width 25.2 % (11.6-17.2) Mean Platelet Volume 6.9 FL (7.0-11.0) Neutrophils (%) (Auto) 76.7 % (16.0-70.0) Neutrophils # (Auto) 8.5 TH/MM3 (1.8-7.7) Ovalocytes 1+ (NORMAL) Rouleau PRESENT (NORMAL) Keratocytes OCC (NORMAL) PE at Discharge General: No acute distress. Heart: Regular rate and rhythm. No murmur. Lungs: Clear to auscultation bilaterally. No wheezes, rales, or rhonchi. Breathing is nonlabored. Abdomen: Soft, nontender, nondistended. Extremities: No lower extremity edema. Psych: Alert and oriented. Hospital Course The patient was admitted for further evaluation and management of severe symptomatic anemia. She was given transfusion of 2 units PRBCs. Hemoglobin remained low. Further labs showed significant iron deficiency. Gastroenterology was consulted for evaluation of possible GI bleed. EGD showed gastritis, but no active bleeding. Hematology was consulted and recommended IV iron, which was administered. The patient's hemoglobin did improve and she was felt to be stable for discharge home. Pt Condition on Discharge: Stable Discharge Disposition: Discharge Home Discharge Time: > 30 minutes Discharge Instructions DIET: Follow Instructions for: Heart Healthy Diet Speech Therapy-Diet Recommends: Regular Activities you can perform: Regular-No Restrictions Follow up Referrals: Gastroenterology - 2 Weeks with Kristopher Bernal MD Oncology - 1 Week with Kunal Causey MD PCP Follow-up - 1 Week New Medications: Ferrous Sulfate (Ferosul) 325 Mg Tablet 325 MG PO BID Anemia #60 Ref 0 TAB Folic Acid (Folic Acid) 1 Mg Tablet 1 MG PO DAILY Nutritional Supplement #30 Ref 0 TAB Pantoprazole (Pantoprazole) 40 Mg Tab 40 MG PO Q12HR GERD #60 Ref 0 TAB Continued Medications: Aspirin (Aspirin Children's) 81 Mg Chew 81 MG CHEW DAILY Ref 0 TAB Calcium Citrate-Vitamin D (Citracal + D3 Maximum) 315-250 Mg-Unit Tab 1 TAB PO ONCE Calcium Supplement #100 Ref 0 TAB Coenzyme Q10 (Ubidecarenone) (Co Q 10) 100 Mg Cap Cyanocobalamin (B12) 1,000 Mcg Tab Zffsoejucom-Xwglbfgzaxn-Pgd C- (Glucosamine Chondroitin) 1 Cap Cap Unknown Dose Hydrochlorothiazide (Hydrochlorothiazide) 25 Mg Tab 25 MG PO DAILY #30 Ref 0 TAB Losartan (Losartan) 25 Mg Tab 25 MG PO DAILY Blood Pressure Management #30 Ref 0 TAB Metoprolol Succinate ER 24 HR (Metoprolol Succinate ER 24 HR) 25 Mg Tab 25 MG PO DAILY #30 Ref 0 TAB Multiple Vitamin (Multi Vitamin Daily) 1 Tab Tab Naproxen (Naproxen) 250 Mg Tab 250 MG PO BID #14 Ref 0 TAB Banner-3 Fatty Acids (Fish Oil) 1,000 Mg Cap 1400 MG Pravastatin (Pravastatin) 20 Mg Tab 20 MG PO DAILY Cholesterol Management #30 Ref 0 TAB Turmeric (Curcuma Longa) (Turmeric) 500 Mg Cap Discontinued Medications: Omeprazole (Omeprazole) 20 Mg Tab 20 MG PO DAILY #30 Ref 0 TAB Luisito Don MD Dec 17, 2016 15:54
== END 2016-12-17 17:10 | disposition home or self-care (01) | DRG 812 ==
LOC: NEDDLT 00:45 → PH3A 00:49
PROVIDERS: ADMIT Family Medicine; ATTEND Family Medicine
PROC: 30233N1 Transfusion of Nonautologous Red Blood Cells into Peripheral Vein, Percutaneous Approach (ICD-10-PCS; principal; 2016-12-15)
PROC: 0D758ZZ Dilation of Esophagus, Via Natural or Artificial Opening Endoscopic (ICD-10-PCS; 2016-12-16)
PROC: 0D5N8ZZ Destruction of Sigmoid Colon, Via Natural or Artificial Opening Endoscopic (ICD-10-PCS; 2016-12-16)
PROC: 0DB68ZX Excision of Stomach, Via Natural or Artificial Opening Endoscopic, Diagnostic (ICD-10-PCS; 2016-12-16 08:00)
DX: D50.9 Iron deficiency anemia, unspecified (principal); K22.2 Esophageal obstruction; I10 Essential (primary) hypertension; K29.70 Gastritis, unspecified, without bleeding; K44.9 Diaphragmatic hernia without obstruction or gangrene; K57.30 Diverticulosis of large intestine without perforation or abscess without bleeding; D12.5 Benign neoplasm of sigmoid colon; M79.7 Fibromyalgia; K58.9 Irritable bowel syndrome, unspecified; K21.9 Gastro-esophageal reflux disease without esophagitis; E78.5 Hyperlipidemia, unspecified; J02.9 Acute pharyngitis, unspecified; E89.2 Postprocedural hypoparathyroidism; Z79.82 Long term (current) use of aspirin
CPT/HCPCS: 36430; 71020; 80048; 80053; 82272; 82607; 82728; 82746; 83010; 83540; 83550; 83615; 85014; 85018; 85025; 85044; 86850; 86900; 86901; 86920; 88305; 88312; 93005; 96360; C1769; J1756; J2405; J7030; J7050; P9016

== ENCOUNTER 2017-07-03 22:50 | Observation (INO) | payer MEDICARE, OTHER ==
[~2017-07-03 22:50] MED LIST changes: -CYMB60CA PO; +FERR325T20 PO; +FOLI1TAB6 PO; +METO1TAB42 PO; -METO25TA6 PO; -NAPR250T PO; +NAPR250T4 PO; +PANT40TA3 PO
[2017-07-03] MEDS ORDERED: POTASSIUM CHLORIDE INJ 20 MEQ in SODIUM CHLOR 0.9% 1000 ML INJ 1,000 ML IV SCH (23:51)
[2017-07-04] MEDS ORDERED: SODIUM CHLORIDE 0.9% FLUSH 10 ML FLUSH IV FLUSH PRN
[2017-07-04] MEDS ORDERED: ONDANSETRON HCL 4 MG/2 ML VIAL IVP PRN
[2017-07-04] MEDS ORDERED: NALOXONE HCL 0.4 MG/ML AMP IV PUSH PRN
[2017-07-04 01:05] LABS: AUTOMATED NEUTROPHIL # 9.4 TH/MM3 (1.8-7.7); BASOPHIL # 0.3 TH/MM3 (0-0.2); EOSINOPHIL # 0.1 TH/MM3 (0-0.4); EOSINOPHIL % 0.6 % (0.0-4.0); HEMATOCRIT 45.2 % (35.0-46.0); HEMOGLOBIN 14.9 GM/DL (11.6-15.3); LYMPH % 16.9 % (9.0-44.0); LYMPHOCYTE # 2.1 TH/MM3 (1.0-4.8); MEAN CELL VOLUME 87.5 FL (80.0-100.0); MEAN CORPUSCULAR HEMOGLOBIN 28.9 PG (27.0-34.0); MEAN CORPUSCULAR HGB CONC 33.1 % (32.0-36.0); MEAN PLATELET VOLUME 8.5 FL (7.0-11.0); MONOCYTE # 0.8 TH/MM3 (0-0.9); NEUT % 74.5 % (16.0-70.0); PLATELET COUNT 244 TH/MM3 (150-450); RED BLOOD COUNT 5.17 MIL/MM3 (4.00-5.30); RED CELL DISTRIBUTION WIDTH 13.2 % (11.6-17.2); WHITE BLOOD COUNT 12.6 TH/MM3 (4.0-11.0)
[2017-07-04 01:27] LABS: BICARBONATE 27.8 MEQ/L (21.0-32.0); CALCIUM 8.9 MG/DL (8.5-10.1); CREATININE 0.92 MG/DL (0.50-1.00)
[2017-07-04] MEDS: PIPERACIL-TAZO 3.375 GM PREMIX 50 ML IV SCH ×2 (01:31→06:12)
[2017-07-04] MEDS ORDERED: POTASSIUM BICARBONATE 25 MEQ EFFERVESCENT TAB PO ONE ×2 (01:45→11:00)
[2017-07-04] MEDS: POTASSIUM CHLOR 10 MEQ PREMIX 100 ML IV SCH ×4 (02:05→05:06)
[2017-07-04] MEDS: NS + KCL 20 MEQ INJ 1,000 ML IV SCH ×2 (02:05→13:35)
[2017-07-04 04:00] VITALS: BP 132/71; PULSE 78; RESP 17; TEMP 98.5; O2SAT 96
[2017-07-04 06:33] LABS: HEMATOCRIT 41.2 % (35.0-46.0); HEMOGLOBIN 13.7 GM/DL (11.6-15.3)
[2017-07-04 08:00] VITALS: BP 131/65; PULSE 68; RESP 18; TEMP 98; O2SAT 96
[2017-07-04] MEDS: SODIUM CHLORIDE 0.9% FLUSH 10 ML FLUSH IV FLUSH SCH ×2 (09:00→21:01)
--- NOTE | 2017-07-04 09:08 | HHI.HP ---
[facility] Alexey Larson MD Admission Diagnosis Diagnoses: (1) GI bleed Diagnosis: Principal (2) Hypertension Diagnosis: Secondary (3) Hypokalemia Diagnosis: Secondary Chief Complaint: Abdominal pain Nausea, vomiting, diarrhea Travel History International Travel<30 Days: No Contact w/Intl Traveler <30 Da: No Traveled to Known Affected Are: No History of Present Illness Written by Netta Chu, acting as scribe for Dr. Young on 07/04/17 at 09:04. Mrs. Linn is a 72-year-old female patient with a known medical history of hypertension, hyperlipidemia who presented to the ED with complaints of diarrhea and blood present her stool. On morning around 0230 she awoke and had a bout of diarrhea which continued throughout the afternoon, which at that time she recognized the blood in her stool. Denies any recent fever or chills. Admits to intermittent abdominal cramping. Last BM reported around 0130 this morning. Patient does state that her and dog have also been having diarrhea and relates her present diarrhea to possibly something her and her ate and was also given to the dog. Reports of last colonoscopy was in December. Admits to a recent GI bleed due to use of excessive NSAIDs. Denies any recent NSAID use. Review of Systems Constitutional: DENIES: Fever, Chills Eyes: DENIES: Blurred vision Respiratory: DENIES: Cough, Hemoptysis, Shortness of breath Cardiovascular: DENIES: Chest pain, Palpitations Gastrointestinal: COMPLAINS OF: Abdominal pain, Bloody stools, DENIES: Diarrhea , Nausea, Vomiting Neurologic: DENIES: Abnormal gait Psychiatric: DENIES: Anxiety Except as stated in HPI: all other systems reviewed are Neg Past Family Social History Past Medical History Hypertension Hyperlipidemia Fibromyalgia Gastroesophageal reflux Past Surgical History Parathyroidectomy Hysterectomy Right ankle surgery Reported Medications Active Pantoprazole (Pantoprazole Sodium) 40 Mg Tab 40 Mg PO Q12HR Folic Acid 1 Mg Tablet 1 Mg PO DAILY Reported Citracal + D3 Maximum (Calcium Citrate-Vitamin D) 315-250 Mg-Unit Tab 1 Tab PO ONCE B12 (Cyanocobalamin) 1,000 Mcg Tab Aspirin Children's (Aspirin) 81 Mg Chew 81 Mg CHEW DAILY Multi Vitamin Daily (Multiple Vitamin) 1 Tab Tab Pravastatin 20 Mg Tab 20 Mg PO DAILY Hydrochlorothiazide 25 Mg Tab 25 Mg PO DAILY Losartan (Losartan Potassium) 25 Mg Tab 25 Mg PO DAILY Metoprolol Succinate ER 24 HR (Metoprolol Succinate) 25 Mg Tab 25 Mg PO DAILY Allergies: Coded Allergies: No Known Allergies (Unverified Allergy, Unknown, 07/04/17) Active Ordered Medications Current Medications Medications (Trade) Dose Ordered Sig/Vel Route Start Time Stop Time Status Last Admin (NS Flush) 2 ml UNSCH PRN IV FLUSH 07/04/17 00:00 (NS Flush) 2 ml BID IV FLUSH 07/04/17 09:00 (Zofran Inj) 4 mg Q6H PRN IVP 07/04/17 00:00 (Narcan Inj) 0.4 mg UNSCH PRN IV PUSH 07/04/17 00:00 Piperacillin Sod/ Tazobactam Sod 50 ml @ 100 mls/hr Q6HR IV 07/04/17 00:15 07/04/17 06:12 Potassium Chloride/Sodium Chloride 1,000 ml @ 75 mls/hr [id number] IV 07/04/17 00:15 07/04/17 02:05 (Hydrodiuril) 25 mg DAILY PO 07/04/17 09:00 (Cozaar) 25 mg DAILY PO 07/04/17 09:00 (Toprol Xl) 25 mg DAILY PO 07/04/17 09:00 (Protonix) 40 mg Q12HR PO 07/04/17 09:00 (Pravachol) 20 mg DAILY PO 07/04/17 09:00 Family History Reviewed is significant for mother and sister with hiatal hernia. Denies any family history of colon cancer. Patient denied any family history of heart disease, lung disease, diabetes, cancer, seizure. Social History Patient denies any tobacco, alcohol or illicit drugs Physical Exam Vital Signs Vital Signs Date Time Temp Pulse Resp B/P (MAP) Pulse Ox O2 Delivery O2 Flow Rate FiO2 07/04/17 08:00 98.0 68 18 131/65 (87) 96 07/04/17 04:00 98.5 78 17 132/71 (91) 96 Physical Exam GENERAL: This is a well-nourished, well-developed female patient, lying in bed in no apparent distress. SKIN: No rashes, ecchymoses or lesions. Warm and dry. HEAD: Atraumatic. Normocephalic. EYES: Pupils equal round and reactive. Extraocular motions intact. No scleral icterus. No injection or drainage. ENT: Nose without bleeding, purulent drainage or septal hematoma. Throat without erythema, tonsillar hypertrophy or exudate. Uvula midline. Airway patent. NECK: Trachea midline. No JVD. Supple. CARDIOVASCULAR: Regular rate and rhythm without murmurs, gallops, or rubs. RESPIRATORY: Clear to auscultation. Breath sounds equal bilaterally. No wheezes , rales, or rhonchi. GASTROINTESTINAL: Abdomen soft, nondistended. No guarding. MUSCULOSKELETAL: Extremities without clubbing, cyanosis, or edema. NEUROLOGICAL: Awake and alert. Cranial nerves II through XII intact. Motor and sensory grossly within normal limits. Five out of 5 muscle strength in all muscle groups. Normal speech. Laboratory Laboratory Tests Test 07/04/17 00:50 07/04/17 06:13 White Blood Count 12.6 Red Blood Count 5.17 Hemoglobin 14.9 13.7 Hematocrit 45.2 41.2 Mean Corpuscular Volume 87.5 Mean Corpuscular Hemoglobin 28.9 Mean Corpuscular Hemoglobin Concent 33.1 Red Cell Distribution Width 13.2 Platelet Count 244 Mean Platelet Volume 8.5 Neutrophils (%) (Auto) 74.5 Lymphocytes (%) (Auto) 16.9 Monocytes (%) (Auto) 6.0 Eosinophils (%) (Auto) 0.6 Basophils (%) (Auto) 2.0 Neutrophils # (Auto) 9.4 Lymphocytes # (Auto) 2.1 Monocytes # (Auto) 0.8 Eosinophils # (Auto) 0.1 Basophils # (Auto) 0.3 CBC Comment AUTO DIFF Differential Comment AUTO DIFF CONFIRMED Platelet Estimate NORMAL Platelet Morphology Comment NORMAL Red Cell Morphology Comment NORMAL Blood Urea Nitrogen 20 Creatinine 0.92 Random Glucose 115 Calcium Level 8.9 Sodium Level 141 Potassium Level 2.9 Chloride Level 106 Carbon Dioxide Level 27.8 Anion Gap 7 Estimat Glomerular Filtration Rate 60 Result Diagram: 07/04/17 0613 07/04/17 0050 Septic Shock Reassessment Septic shock perfusion: reassessment completed Caprini VTE Risk Assessment Caprini VTE Risk Assessment: Mod/High Risk (score >= 2) Caprini Risk Assessment Model Point Value = 1 Point Value = 2 Point Value = 3 Point Value = 5 Age 41-60 Minor surgery BMI > 25 kg/m2 Swollen legs Varicose veins or History of unexplained or recurrent spontaneous Oral contraceptives or hormone replacement Sepsis (< 1 month) Serious lung disease, including pneumonia (< 1 month) Abnormal pulmonary function Acute myocardial infarction Congestive heart failure (< 1 month) History of inflammatory bowel disease Medical patient at bed rest Age 61-74 Arthroscopic surgery Major open surgery (> 45 min) Laparoscopic surgery (> 45 min) Malignancy Confined to bed (> 72 hours) Immobilizing plaster cast Central venous access Age >= 75 History of VTE Family history of VTE Factor V Leiden Prothrombin [id number] Lupus anticoagulant Anticardiolipin antibodies Elevated serum homocysteine Heparin-induced thrombocytopenia Other congenital or acquired thrombophilia Stroke (< 1 month) Elective arthroplasty Hip, pelvis, or leg fracture Acute spinal cord injury (< 1 month) Prophylaxis Regimen Total Risk Factor Score Risk Level Prophylaxis Regimen 0-1 Low Early ambulation 2 Moderate Order ONE of the following: *Sequential Compression Device (SCD) *Heparin 5000 units SQ BID 3-4 Higher Order ONE of the following medications: *Heparin 5000 units SQ TID *Enoxaparin/Lovenox 40 mg SQ daily (WT < 150 kg, CrCl > 30 mL/min) *Enoxaparin/Lovenox 30 mg SQ daily (WT < 150 kg, CrCl > 10-29 mL/min) *Enoxaparin/Lovenox 30 mg SQ BID (WT < 150 kg, CrCl > 30 mL/min) AND/OR *Sequential Compression Device (SCD) 5 or more Highest Order ONE of the following medications: *Heparin 5000 units SQ TID (Preferred with Epidurals) *Enoxaparin/Lovenox 40 mg SQ daily (WT < 150 kg, CrCl > 30 mL/min) *Enoxaparin/Lovenox 30 mg SQ daily (WT < 150 kg, CrCl > 10-29 mL/min) *Enoxaparin/Lovenox 30 mg SQ BID (WT < 150 kg, CrCl > 30 mL/min) AND *Sequential Compression Device (SCD) Assessment and Plan Problem List: (1) GI bleed ICD Code: K92.2 - Gastrointestinal hemorrhage, unspecified (2) Hypokalemia ICD Code: E87.6 - Hypokalemia (3) Hypertension ICD Code: I10 - Essential (primary) hypertension Status: Acute Assessment and Plan Mrs. Linn is a 72-year-old female patient with a known medical history of hypertension, hyperlipidemia who presented to the ED with complaints of diarrhea and bloody stools. Gastrointestinal bleed with one day history of bloody stools History of GI bleed in the past secondary to NSAID use Abdominal/Pelvis CT reviewed showing diffuse mural thickening of the colon especially transverse and left colon characteristic of a colitis. No obstruction , free fluid or free air. GI has been consulted and has seen patient with recommendations for additional colonoscopy, last one in December 2016. At this time patient is refusing colonoscopy and requesting to go home. Hemiglobin 14.9/Hematocrit 45.2. Hemoccult positive. Stable with last BM last evening. Continue to trend H&H GI placed on Cipro and Flagyl. Will DC Zosyn. WBC 12.6. Monitor fevers. Stool studies ordered and pending, continue to follow growth. Ensure hydration, NS with potassium supplementation @ 70 ml/hr. Supportive care. Hypokalemia secondary to diarrhea: K 2.9 on presentation. Repletion ordered. Continued IVF. Will recheck BMP. Hypertension, chronic: Continue home medications. BP controlled. Monitor BP trends. Hyperlipidemia, chronic: Continue home statin. GI protection: Protonix 40 mg PO BID. DVT Prophylaxis: SCDs. This note was transcribed by MICHAEL Dill. I, Dr. Grace Young personally performed the history, physical exam, and medical decision making; and confirmed the accuracy of the information in the transcribed note. Authenticated by Dr. Grace Young on 07/04/17 at 09:04. Netta Chu Jul 04, 2017 09:08 Grace Young MD Jul 04, 2017 14:16
[2017-07-04] MEDS: LOSARTAN 25 MG TAB PO SCH (09:24)
[2017-07-04] MEDS: HYDROCHLOROTHIAZIDE 25 MG TAB PO SCH (09:24)
[2017-07-04] MEDS: METOPROLOL SUCCINATE 25 MG EXTENDED RELEASE TAB PO SCH (09:24)
[2017-07-04] MEDS: PRAVASTATIN SOD 20 MG TAB PO SCH (09:24)
[2017-07-04] MEDS: PANTOPRAZOLE SOD 40 MG DELAYED RELEASE TAB PO SCH ×2 (09:24→21:01)
--- NOTE | 2017-07-04 10:13 | PD.CONS ---
HPI History of Present Illness This is a 72 year old F who is known to our service. She has GI history significant for acid reflux and IBS. Reports she is not currently taking any medication for IBS, states it is normal for her to have multiple episodes of diarrhea in the morning that resolves throughout the day. She presented to the ER yesterday with complaints of diarrhea and blood in her stool. She reports diarrhea started at 2:30 AM in the morning on , her and dog were also having diarrhea. She reports that she started having BRB in her stool at 11 in the afternoon on , reports it was just blood and not mixed with any stool. Last BM was approx midnight last night and she still noticed some BRB in her stool. Has had GI bleed in the past but reports it was due to excessive Aleve use at the time. Denies nausea, vomiting, fever, chills. Reports some mild abdominal pain, described as cramping. Husbands symptoms have now resolved. Denies taking blood thinners, does take a daily baby ASA. Denies ETOH and smoking. Denies NSAID use. (Kelle Glasgow) PFSH Past Medical History Hypertension Hyperlipidemia Fibromyalgia Gastroesophageal reflux IBS Past Surgical History Parathyroidectomy Hysterectomy Right ankle surgery (Kelle Glasgow) Coded Allergies: No Known Allergies (Unverified Allergy, Unknown, 07/04/17) Family History Reviewed is significant for mother and sister with hiatal hernia. Patient denied any family history of heart disease, lung disease, diabetes, cancer, seizure Social History Patient denies any tobacco, alcohol or illicit drugs (Kelle Glasgow) Review of Systems Gastrointestinal: COMPLAINS OF: Abdominal pain, Bloody stools, Diarrhea, DENIES : Black stools, Constipation, Nausea, Vomiting, Difficulty Swallowing, Anorexia , Odynophagia, Swelling of Abdomen, Heartburn, Hematemesis (Kelle Glasgow ) GI Exam Vitals I&O Vital Signs Date Time Temp Pulse Resp B/P (MAP) Pulse Ox O2 Delivery O2 Flow Rate FiO2 07/04/17 08:00 98.0 68 18 131/65 (87) 96 07/04/17 04:00 98.5 78 17 132/71 (91) 96 I/O 07/03/17 07/03/17 07/03/17 07/04/17 07/04/17/29/17 07:00 15:00 23:00 07:00 15:00 23:00 Intake Total 890 ml Balance 890 ml Intake IV Total 890 ml Laboratory Test 07/04/17 00:50 07/04/17 06:13 White Blood Count 12.6 TH/MM3 Red Blood Count 5.17 MIL/MM3 Hemoglobin 14.9 GM/DL 13.7 GM/DL Hematocrit 45.2 % 41.2 % Mean Corpuscular Volume 87.5 FL Mean Corpuscular Hemoglobin 28.9 PG Mean Corpuscular Hemoglobin Concent 33.1 % Red Cell Distribution Width 13.2 % Platelet Count 244 TH/MM3 Mean Platelet Volume 8.5 FL Neutrophils (%) (Auto) 74.5 % Lymphocytes (%) (Auto) 16.9 % Monocytes (%) (Auto) 6.0 % Eosinophils (%) (Auto) 0.6 % Basophils (%) (Auto) 2.0 % Neutrophils # (Auto) 9.4 TH/MM3 Lymphocytes # (Auto) 2.1 TH/MM3 Monocytes # (Auto) 0.8 TH/MM3 Eosinophils # (Auto) 0.1 TH/MM3 Basophils # (Auto) 0.3 TH/MM3 CBC Comment AUTO DIFF Differential Comment AUTO DIFF CONFIRMED Platelet Estimate NORMAL Platelet Morphology Comment NORMAL Red Cell Morphology Comment NORMAL Blood Urea Nitrogen 20 MG/DL Creatinine 0.92 MG/DL Random Glucose 115 MG/DL Calcium Level 8.9 MG/DL Sodium Level 141 MEQ/L Potassium Level 2.9 MEQ/L Chloride Level 106 MEQ/L Carbon Dioxide Level 27.8 MEQ/L Anion Gap 7 MEQ/L Estimat Glomerular Filtration Rate 60 ML/MIN Physical Examination HEENT: Normocephalic; atraumatic CHEST: Even/unlabored. CARDIAC: RRR ABDOMEN: Soft, nondistended, mild diffuse tenderness, no hepatosplenomegaly; bowel sounds active x 4. EXTREMITIES: No clubbing, cyanosis, or edema. SKIN: Normal; no rash; no jaundice. DELIVERY ENGINEER: No focal deficits; alert and oriented times three. (Kelle Glasgow) Assessment and Plan Plan - GIB- Pt reports BRB in her stool that began at 11 yesterday afternoon. Last BM was last night at approx midnight, and she still noticed blood in the stool. and dog with same symptoms, she states their symptoms have since resolved. History of upper GIB, related to excessive Aleve intake. Denies ETOH, NSAIDs, blood thinners. History of IBS, mostly diarrhea. CT abdomen and pelvis W IV contrast (07/03) --> Diffuse mural thickening of the colon especially transverse and left colon characteristic of a colitis. No obstruction, free fluid or free air. Lymphocytosis, WBC 12.6. Currently on Zosyn. Stool studies pending, ova and parasites, enteric pathogens, and C. diff toxin. Would recommend colonoscopy, however pt reports she wants to think about this and she is unsure if she wants to proceed. H/H currently stable, 14.9/45.2. Has not received transfusion. Plan - Serial H/H - Transfuse as needed - Recommended colonoscopy, pt refusing at this time but wants time to think about it - Cipro - Flagyl - Stool studies pending - Supportive care - Further recommendations to follow based on results of above Pt has been seen and examined by myself and Dr. Fitch and this note is written on his behalf (Kelle Glasgow) Physician Comments Seen and examined with MICHAEL, doing better. Colitis on CT probable infectious. Recent colonoscopy in december for anemia reported as normal. Advance diet. Await stool studies. Possible dc home tomorrow with gi fu as outpt. Thank you (Jess Fitch MD) Kelle Glasgow Jul 04, 2017 10:13 Jess Fitch MD Jul 04, 2017 14:04
[2017-07-04] MEDS: CIPROFLOXACIN 400 MG PREMIX 200 ML IV SCH ×2 (11:22→23:00)
[2017-07-04 12:34] LABS: HEMOGLOBIN 13.5 GM/DL (11.6-15.3)
[2017-07-04] MEDS: metroNIDAZOLE 500 MG INJ 100 ML IV SCH ×2 (14:00→22:17)
[2017-07-04 18:19] LABS: HEMATOCRIT 40.1 % (35.0-46.0); HEMOGLOBIN 13.7 GM/DL (11.6-15.3)
[2017-07-04 21:51] VITALS: BP 128/63; PULSE 69; RESP 18; TEMP 98.3; O2SAT 98
[2017-07-05] MEDS: NS + KCL 20 MEQ INJ 1,000 ML IV SCH (03:16)
[2017-07-05] MEDS: metroNIDAZOLE 500 MG INJ 100 ML IV SCH ×2 (06:07→14:00)
[2017-07-05 08:00] VITALS: BP 140/61; PULSE 60; RESP 18; TEMP 97.9; O2SAT 98
[2017-07-05] MEDS: LOSARTAN 25 MG TAB PO SCH (08:34)
[2017-07-05] MEDS: PANTOPRAZOLE SOD 40 MG DELAYED RELEASE TAB PO SCH (08:34)
[2017-07-05] MEDS: PRAVASTATIN SOD 20 MG TAB PO SCH (08:34)
[2017-07-05] MEDS: METOPROLOL SUCCINATE 25 MG EXTENDED RELEASE TAB PO SCH (08:34)
[2017-07-05] MEDS: HYDROCHLOROTHIAZIDE 25 MG TAB PO SCH (08:35)
[2017-07-05] MEDS: SODIUM CHLORIDE 0.9% FLUSH 10 ML FLUSH IV FLUSH SCH (08:36)
[2017-07-05] MEDS ORDERED: POTASSIUM BICARBONATE 25 MEQ EFFERVESCENT TAB PO SCH (09:00)
--- NOTE | 2017-07-05 09:05 | HHI.PR ---
Subjective Remarks Patient in nad. Says she had no more diarrhea, no nausea or vomiting. Tolerates food. Feels comfortable to go home Objective Vitals Vital Signs Date Time Temp Pulse Resp B/P (MAP) Pulse Ox O2 Delivery O2 Flow Rate FiO2 07/05/17 00:24 07/04/17 21:51 98.3 69 18 128/63 (84) 98 I/O 07/04/17 07/04/17 07/04/17 07/05/17 07/05/17 07/05/17 07:00 15:00 23:00 07:00 15:00 23:00 Intake Total 890 ml 650 ml 2302 ml 100 ml Balance 890 ml 650 ml 2302 ml 100 ml Intake Oral 650 ml IV Total 890 ml 2302 ml 100 ml # Voids 4 3 Result Diagram: 07/04/17 1810 07/04/17 0050 Objective Remarks GENERAL: This is a well-nourished, well-developed female patient, lying in bed in no apparent distress. CARDIOVASCULAR: Regular rate and rhythm without murmurs, gallops, or rubs. RESPIRATORY: Clear to auscultation. Breath sounds equal bilaterally. No wheezes , rales, or rhonchi. GASTROINTESTINAL: Abdomen soft, nondistended. No guarding. MUSCULOSKELETAL: Extremities without clubbing, cyanosis, or edema. NEUROLOGICAL: Awake and alert. Cranial nerves II through XII intact. Motor and sensory grossly within normal limits. Five out of 5 muscle strength in all muscle groups. Normal speech. A/P Problem List: (1) GI bleed ICD Code: K92.2 - Gastrointestinal hemorrhage, unspecified (2) Hypertension ICD Code: I10 - Essential (primary) hypertension Status: Acute (3) Hypokalemia ICD Code: E87.6 - Hypokalemia Assessment and Plan Mrs. Linn is a 72-year-old female patient with a known medical history of hypertension, hyperlipidemia who presented to the ED with complaints of diarrhea and bloody stools. Gastrointestinal bleed with one day history of bloody stools History of GI bleed in the past secondary to NSAID use Abdominal/Pelvis CT reviewed showing diffuse mural thickening of the colon especially transverse and left colon characteristic of a colitis. No obstruction , free fluid or free air. GI has been consulted and has seen patient with recommendations for additional colonoscopy, last one in December 2016. At this time patient is refusing colonoscopy and requesting to go home. Hemiglobin 14.9/Hematocrit 45.2. Hemoccult positive. Stable with last BM last evening. Continue to trend H&H GI placed on Cipro and Flagyl. Will DC Zosyn. WBC 12.6. Monitor fevers. Stool studies ordered and pending, continue to follow growth. Ensure hydration, NS with potassium supplementation @ 70 ml/hr. Supportive care. Hypokalemia secondary to diarrhea: K 2.9 on presentation. Replate. Continued IVF. Will recheck BMP. Hypertension, chronic: Continue home medications. BP controlled. Monitor BP trends. Hyperlipidemia, chronic: Continue home statin. GI protection: Protonix 40 mg PO BID. DVT Prophylaxis: SCDs. Discharge Planning Discharged home in stable condition to follow-up with PCP and consultants as outpatient Diet heart healthy diet and diabetic diet Medications per medication reconciliation Activity ad gabbie. as tolerated Grace Young MD Jul 05, 2017 09:05
--- NOTE | 2017-07-05 09:11 | HHI.GIFU ---
Subjective Remarks No more BPR, tolerating diet well. Objective Vitals I&O Vital Signs Date Time Temp Pulse Resp B/P (MAP) Pulse Ox O2 Delivery O2 Flow Rate FiO2 07/05/17 00:24 07/04/17 21:51 98.3 69 18 128/63 (84) 98 I/O 07/04/17 07/04/17 07/04/17 07/05/17 07/05/17 07/05/17 07:00 15:00 23:00 07:00 15:00 23:00 Intake Total 890 ml 650 ml 2302 ml 100 ml Balance 890 ml 650 ml 2302 ml 100 ml Intake Oral 650 ml IV Total 890 ml 2302 ml 100 ml # Voids 4 3 Laboratory Laboratory Tests Test 07/04/17 12:15 07/04/17 18:10 Hemoglobin 13.5 13.7 Hematocrit 40.0 40.1 Physical Exam HEENT: Pupils round and reactive to light; normocephalic; atraumatic; no jaundice. Throat is clear. NECK: Neck is supple, no JVD, no lymphadenopathy. CHEST: Chest is clear to auscultation and percussion. CARDIAC: Regular rate and rhythm with no murmur gallop or rubs. ABDOMEN: Soft, nondistended, nontender; no hepatosplenomegaly; bowel sounds are present in all four quadrants. EXTREMITIES: No clubbing, cyanosis, or edema. SKIN: Normal; no rash; no jaundice. STRATEGIC COMMUNICATIONS MANAGER: No focal deficits; alert and oriented times three. Assessment and Plan Plan - GIB- stable , colonoscopy in December reported as negative, she had BRB in her stool, History of upper GIB, related to excessive Aleve intake. Denies ETOH, NSAIDs, blood thinners. History of IBS, mostly diarrhea. CT abdomen and pelvis W IV contrast (07/03) --> Diffuse mural thickening of the colon especially transverse and left colon characteristic of a colitis. No obstruction, free fluid or free air. Lymphocytosis, WBC 12.6. Currently on Zosyn. Stool studies pending, ova and parasites, enteric pathogens, and C. diff toxin. Would recommend colonoscopy, however pt reports she wants to think about this and she is unsure if she wants to proceed. H/H currently stable, 14.9/45.2. Has not received transfusion. Plan - BHUMIKA - Recommended colonoscopy, pt refusing at this time but wants time to think about it - Cipro - Flagyl - Stool studies pending - Supportive care - Further recommendations to follow based on results of above Wallace oCffey MD Jul 05, 2017 09:11
[2017-07-05 10:34] LABS: AUTOMATED NEUTROPHIL # 7.3 TH/MM3 (1.8-7.7); BASOPHIL % 0.3 % (0.0-2.0); EOSINOPHIL # 0.3 TH/MM3 (0-0.4); EOSINOPHIL % 3.4 % (0.0-4.0); HEMOGLOBIN 13.6 GM/DL (11.6-15.3); LYMPH % 19.1 % (9.0-44.0); LYMPHOCYTE # 1.9 TH/MM3 (1.0-4.8); MEAN CELL VOLUME 88.8 FL (80.0-100.0); MEAN CORPUSCULAR HEMOGLOBIN 28.7 PG (27.0-34.0); MEAN CORPUSCULAR HGB CONC 32.3 % (32.0-36.0); MONOCYTE # 0.5 TH/MM3 (0-0.9); NEUT % 72.2 % (16.0-70.0); PLATELET COUNT 218 TH/MM3 (150-450); RED BLOOD COUNT 4.74 MIL/MM3 (4.00-5.30); RED CELL DISTRIBUTION WIDTH 13.5 % (11.6-17.2)
[2017-07-05 10:45] LABS: CALCIUM 8.5 MG/DL (8.5-10.1)
[2017-07-05 10:46] LABS: BICARBONATE 29.1 MEQ/L (21.0-32.0)
[2017-07-05 10:49] LABS: CREATININE 0.73 MG/DL (0.50-1.00)
[2017-07-05] MEDS ORDERED: POTASSIUM CHLORIDE 20 MEQ CONTROLLED RELEASE TAB PO ONE (11:00)
[2017-07-05] MEDS: CIPROFLOXACIN 400 MG PREMIX 200 ML IV SCH (11:00)
[2017-07-05 12:00] VITALS: BP 125/85; PULSE 63; RESP 16; TEMP 98.3; O2SAT 98
--- NOTE | 2017-07-05 13:24 | HHI.DCPOC ---
Discharge Care Plan Diagnosis: (1) GI bleed (2) Hypokalemia Goals to Promote Your Health * To prevent worsening of your condition and complications * To maintain your health at the optimal level Directions to Meet Your Goals Take your medications as prescribed Follow your dietary instruction Follow activity as directed Keep your appointments as scheduled Take your immunizations and boosters as scheduled If your symptoms worsen call your PCP, if no PCP go to Urgent Care Center or Emergency Room Smoking is Dangerous to Your Health. Avoid second hand smoke Call the 24-hour hour crisis hotline for domestic abuse at Netta Chu Jul 05, 2017 13:24
[2017-07-05] MEDS ORDERED: CIPR-9 PO (13:28)
[2017-07-05] MEDS ORDERED: POTA10TA2 PO (13:28)
[2017-07-05] MEDS ORDERED: METR-1 PO (13:28)
[2017-07-05] MEDS ORDERED: NORC5TAB PO (13:35)
== END 2017-07-05 14:45 | disposition home or self-care (01) ==
LOC: PHEDDLT 22:50 → PH3A 22:51
PROVIDERS: ADMIT Hospitalist; ATTEND Hospitalist
DX: K52.9 Noninfective gastroenteritis and colitis, unspecified (principal); E87.6 Hypokalemia; I10 Essential (primary) hypertension; K21.9 Gastro-esophageal reflux disease without esophagitis; E78.5 Hyperlipidemia, unspecified; M79.7 Fibromyalgia; D72.820 Lymphocytosis (symptomatic)
CPT/HCPCS: 80048; 83735; 85014; 85018; 85025; 96361; 96365; 96366; 96367; 96368; 96376; G0378; J0744; J2543; J3480

== ENCOUNTER → 2017-07-10 | Outpatient (CLI) | payer MEDICARE, OTHER ==
[~2017-07-10] MED LIST changes: +CIPR-9 PO; -CO Q100C9; -FERR325T20 PO; -FISH1000; -GLUC1CAP16; +METR-1 PO; -NAPR250T4 PO; +NORC5TAB PO; +POTA10TA2 PO; -TURM500C3
--- NOTE | 2017-07-11 23:16 | EKG ---
Date Performed: 07/10/2017 Time Performed: 12:34:23 PTAGE: 72 years EKG: Sinus rhythm WITH FREQUENT VENTRICULAR PREMATURE COMPLEXES ABNORMAL RHYTHM ECG PREVIOUS TRACING : 12/16/2016 06.29 Compared to prior tracing no significant change DOCTOR: Ralph Zimmerman Interpretating Date/Time 07/11/2017 23:15:09
== END ==
LOC: HCAV 12:23
PROVIDERS: ATTEND Internal Medicine Hematology & Oncology
DX: R00.2 Palpitations (principal); R00.0 Tachycardia, unspecified
CPT/HCPCS: 93005